=== PATIENT | female | born 1995 | race Caucasian/White ===

== ENCOUNTER 2018-06-01 15:11 | Emergency (ER) | payer OTHER ==
[2018-06-01 15:17] VITALS: BP 118/62; PULSE 64; TEMP 98; BMI 36.6
--- NOTE | 2018-06-01 15:41 | PDOC ---
History of Present Illness - General Chief Complaint: Pain Stated Complaint: ANKLE PAIN Time Seen by Provider: 06/01/18 15:30 History Source: Patient Exam Limitations: No Limitations - History of Present Illness Initial Comments: 06/01/18 15:40 pt twisted left ankle walking up the steps at her job. has pain to the back of the heel. Occurred: reports: just prior to arrival Severity: Yes: mild Past History - Past Medical History Allergies/Adverse Reactions: Allergies Allergy/AdvReac Type Severity Reaction Status Date / Time No Known Allergies Allergy Verified 06/01/18 15:17 Home Medications: Ambulatory Orders NK [No Known Home Medication] 06/01/18 COPD: No - Suicide/Smoking/Psychosocial Hx Smoking History: Never smoked *Physical Exam - Vital Signs Last Vital Signs Temp Pulse Resp BP Pulse Ox 98 F 64 18 118/62 99 06/01/18 15:15 06/01/18 15:15 06/01/18 15:15 06/01/18 15:15 06/01/18 15:15 - Physical Exam General Appearance: Yes: Nourished, Appropriately Dressed HEENT: positive: EOMI, CARRIE Extremity: positive: Normal Capillary Refill, Normal Inspection, Normal Range of Motion, Tender (posterior ankle /heel nv intact , tendon intact ) Integumentary: positive: Normal Color, Dry, Warm Neurologic: positive: Fully Oriented, Alert, Normal Mood/Affect, Normal Response , Motor Strength 5/5 Procedures - Splinting Splint Location: Left: Ankle (bobo wrap ) ED Treatment Course - RADIOLOGY Radiology Studies Ordered: Category Date Time Status ANKLE & FOOT-LEFT* [RAD] Stat Radiology 06/01/18 15:33 Ordered Medical Decision Making - Medical Decision Making 06/01/18 15:40 cc: left ankle after walking up the steps at work today, took [employer]. pt has no previous history or allergies will get xray to r/o fracture *DC/Admit/Observation/Transfer Diagnosis at time of Disposition: Ankle sprain Qualifiers: Encounter type: initial encounter Involved ligament of ankle: calcaneofibular ligament Laterality: left Qualified Code(s): S93.412A - Sprain of calcaneofibular ligament of left ankle, initial encounter - Discharge Dispostion Disposition: HOME Condition at time of disposition: Good - Referrals Referrals: Connor Lundy MD [Staff Physician] - - Patient Instructions Additional Instructions: elevate and apply ice every 2hrs for 20 minutes take motrin for pain as directed (over the counter ibuprofen, advil or motrin) use the boob bandage while awake remove to sleep ambulate as tolerated follow with for follow up next week - Post Discharge Activity
== END 2018-06-01 16:11 | disposition home or self-care (01) ==
LOC: JERFT 15:11
DX: S93.412A Sprain of calcaneofibular ligament of left ankle, initial encounter (principal); X58.XXXA Exposure to other specified factors, initial encounter; Y93.89 Activity, other specified; Y92.9 Unspecified place or not applicable
CPT/HCPCS: 73610-TC-LT-FY; 73630-TC-LT; 99281-25

== ENCOUNTER 2019-10-25 19:54 | Emergency (ER) | payer OTHER ==
[2019-10-25 20:07] VITALS: BP 118/80; PULSE 108; TEMP 101.1; BMI 31.6
[2019-10-25] MEDS ORDERED: IBUPROFEN 600 MG TABLET (FP) PO ONE ×2 (20:48→21:02)
--- NOTE | 2019-10-25 21:14 | PDOC ---
History of Present Illness - General Chief Complaint: Sore Throat Stated Complaint: cold symptoms Time Seen by Provider: 10/25/19 20:18 History Source: Patient Exam Limitations: Clinical Condition - History of Present Illness Initial Comments: 10/25/19 21:09 Patient with no significant past medical history present with complaint of 2- day history of nasal congestion, sore throat, fever, chills, body aches and intermittent cough. Patient report taking [id number] Mucinex for symptoms with minimal improvement. Patient reports sibling sick with similar symptoms. Denies recent travel. Denies any other symptoms Is this a multiple visit Asthma Patient?: No Timing/Duration: other (2 days) Past History - Past Medical History Allergies/Adverse Reactions: Allergies Allergy/AdvReac Type Severity Reaction Status Date / Time apple Allergy Verified 10/25/19 20:07 Home Medications: Ambulatory Orders Amox-Tr/K Cl [Augmentin - 875Mg Tablet] 1 tab PO BID #14 tablet 10/25/19 Ipratropium Harmony 2 spray NS BID PRN 5 Days #1 spray 10/25/19 Methylprednisolone [Medrol Dose Kevin] 4 mg PO ASDIR #21 tablet 10/25/19 COPD: No - Psycho Social/Smoking Cessation Hx Smoking History: Never smoked Review of Systems - Review of Systems Able to Perform ROS?: Yes Is the patient limited Telugu proficient: No Constitutional: Yes: Chills, Fever, Malaise HEENTM: Yes: Symptoms Reported, See HPI, Nose Congestion, Throat Pain. No: Eye Pain, Blurred Vision, Tearing, Recent change in vision, Double Vision, Cataracts , Ear Pain, Ocular Prothesis, Ear Discharge, Nose Pain, Tinnitus, Nose Bleeding , Hearing Loss, Throat Swelling, Mouth Pain, Dental Problems, Difficulty Swallowing, Mouth Swelling, Other Respiratory: Yes: Symptoms reported, See HPI, Cough (intermittent cough). No: Orthopnea, Shortness of Breath, SOB with Exertion, SOB at Rest, Stridor, Wheezing, Productive cough, Hemoptysis, Other Cardiac (ROS): No: Symptoms Reported, See HPI, Chest Pain, Edema, Irregular Heart Rate, Lightheadedness, Palpitations, Syncope, Chest Tightness, Other ABD/GI: No: Symptoms Reported, See HPI, Nausea, Vomiting All Other Systems: Reviewed and Negative *Physical Exam - Vital Signs Last Vital Signs Temp Pulse Resp BP Pulse Ox 101.1 F H 108 H 18 118/80 98 10/25/19 20:05 10/25/19 20:05 10/25/19 20:05 10/25/19 20:05 10/25/19 20:05 - Physical Exam 10/25/19 21:11 GENERAL: Well developed, well nourished. Awake and alert. No acute distress. HEENT: Moderate pharyngeal erythema with bilateral large tonsils with white exudate to right tonsil. No uvular deviation. No peritonsillar abscess on exam. Normocephalic, atraumatic. PERRLA, EOMI. No conjunctival pallor. Sclera are non-icteric. Moist mucous membranes. NECK: Supple. Full ROM. CARDIOVASCULAR: Regular rate and rhythm. No murmurs, rubs, or gallops. Distal pulses are 2+ and symmetric. PULMONARY: No evidence of respiratory distress. Lungs clear to auscultation bilaterally. No wheezing, rales or rhonchi. MUSCULOSKELETAL Normal range of motion at all joints. SKIN: Warm and dry. Normal capillary refill. No rashes. No cyanosis. NEUROLOGICAL: Alert, awake, appropriate. Gait is normal without ataxia. PSYCHIATRIC: Cooperative. Good eye contact. Appropriate mood General Appearance: Yes: Nourished, Appropriately Dressed. No: Apparent Distress Medical Decision Making - Medical Decision Making 10/25/19 21:10 Patient with no significant past medical history present with complaint of 2- day history of nasal congestion, sore throat, fever, chills, body aches and intermittent cough. Patient report taking [id number] Mucinex for symptoms with minimal improvement. Patient reports sibling sick with similar symptoms. Denies recent travel. Denies any other symptoms Clinical exam significant for mild erythema to pharynx with right tonsillar exudates. Patient with fever of 101 Fahrenheit. Patient symptoms likely strep versus viral infection. Rapid strep and rapid flu ordered. Motrin 600 mg ordered for fever and pharyngeal pain 10/25/19 21:37 Rapid strep positive. Rapid flu negative. Patient stable for patient management on Augmentin for strep pharyngitis tonsillitis and Medrol Kevin for anti-inflammatory with advised to continue Tylenol and Motrin as needed for fever with ENT follow-up as needed Discharge - Discharge Information Problems reviewed: Yes Clinical Impression/Diagnosis: URI, acute Pharyngitis Qualifiers: Pharyngitis/tonsillitis etiology: streptococcus Qualified Code(s): J02.0 - Streptococcal pharyngitis Fever Qualifiers: Fever type: unspecified Qualified Code(s): R50.9 - Fever, unspecified Condition: Stable Disposition: HOME - Admission No - Additional Discharge Information Prescriptions: Amox-Tr/K Cl [Augmentin - 875Mg Tablet] 1 tab PO BID #14 tablet Ipratropium Harmony 2 spray NS BID PRN 5 Days #1 spray PRN Reason: nasal congestion Methylprednisolone [Medrol Dose Kevin] 4 mg PO ASDIR #21 tablet - Follow up/Referral Referrals: Octavio Sotomayor MD [Staff Physician] - - Patient Discharge Instructions Patient Printed Discharge Instructions: DI for Pharyngitis/Tonsillopharyngitis -- Adult Additional Instructions: Your strep test was positive. Your flu test is negative. Take prescribed antibiotics and finish it. Take Motrin alternate with Tylenol as needed for fever. Increase fluid intake. Follow-up referred to ENT if symptoms persist for more than 4 days - Post Discharge Activity
== END 2019-10-25 21:40 | disposition home or self-care (01) ==
LOC: JERFT 19:54
DX: J02.0 Streptococcal pharyngitis (principal); B95.0 Streptococcus, group A, as the cause of diseases classified elsewhere
CPT/HCPCS: 87804; 87880; 99283-25